=== PATIENT | female | born 1960 | race Two or more races ===

== ENCOUNTER 2017-12-11 09:10 | Emergency (ER) | payer OTHER ==
[2017-12-11 09:22] VITALS: BP 114/60
--- NOTE | 2017-12-11 09:41 | ER Document Report ---
ED Fall - General Chief Complaint: Fall Stated Complaint: WEAKNESS Time Seen by Provider: 12/11/17 09:33 TRAVEL OUTSIDE OF THE [place] IN LAST 30 DAYS: No - HPI Patient complains to provider of: Slip and fall while at work at [employer] Occurred: Just prior to arrival - This 57-year-old female today slipped on paper while at work at [employer] falling onto her left hip and shoulder. She denies any loss of consciousness at that time, denies any chest pain shortness of breath abdominal pain back pain at this time. She denies any loss of continence, she denies any other symptoms. There was no preceding palpitations lightheadedness or other symptoms. Nothing has made the pain any better, movement seems to make it worse. - Related data Allergies/Adverse Reactions: No Known Allergies Allergy (Unverified 12/11/17 09:21) Past Medical History - General Information source: Patient - Social History Smoking Status: Unknown if Ever Smoked Cigarette use (# per day): No Chew tobacco use (# tins/day): No Frequency of alcohol use: None Drug Abuse: None Lives with: Family Family History: None Patient has suicidal ideation: No Patient has homicidal ideation: No - Medical History Medical History: Other Notes: Insulin-dependent diabetic Endocrine Medical History: Reports: Hx Diabetes Mellitus Type 2 Renal/ Medical History: Denies: Hx Peritoneal Dialysis Review of Systems - Review of Systems Musculoskeletal: Back pain, Joint pain, Muscle pain -: Yes All other systems reviewed and negative Physical Exam - Vital signs Vitals: Temp Pulse Resp BP Pulse Ox 97.7 F 61 18 114/60 98 12/11/17 09:21 12/11/17 09:21 12/11/17 09:21 12/11/17 09:21 12/11/17 09:21 - General General appearance: Appears well In distress: Mild - HEENT Head: Normocephalic, Atraumatic Eyes: Normal Extraocular movements intact: Yes Neck: Other - No midline cervical tenderness, baseline paraspinal tenderness, tenderness over the trapezius along the left side - Respiratory Respiratory status: No respiratory distress Chest status: Nontender Breath sounds: Normal Chest palpation: Normal - Cardiovascular Rhythm: Regular - No appreciable murmurs clicks or gallops - Abdominal Inspection: Normal Distension: No distension - Back Notes: No midline tenderness in the thoracic or lumbar spine no appreciable step-offs or deformities - Extremities Arm: Other - Normal range of motion in the right shoulder, 5 out of 5 strength in right upper extremity Diminished range of motion in the left shoulder most painful along the posterior aspect along the superior scapula, tenderness to palpation along the humerus normal range of motion at the elbow wrist and hand Stable chest wall Stable pelvis Diminished range of motion in the left hip, tenderness over the patella left knee Normal range of motion of the right hip as well as the right lower extremity, para 5 strength in the right lower extremity normal sensation in the bilateral lower extremities Course - Re-evaluation Re-evalutation: 12/11/17 15:38 This 57-year-old woman presented after mechanical fall while at work. Given that she is currently complaining of pain along the left leg as well as in the left shoulder with some diminished range of motion will pursue radiographic workup including x-rays of the shoulder clavicle chest pelvis and left knee. Patient's received fentanyl prior to arrival, will re-dose analgesia as necessary. We will obtain basic labs as this patient does have a history of type 1 diabetes that she did take her medications normally today. Patient is overall well appearing at this time does not have any cervical midline tenderness as such as [place] C-spine negative as well as head CT negative will defer imaging of her head and neck at this time. She has no midline tenderness in the thoracic lumbar or cervical spine. Imaging the patient does not demonstrate any obvious fracture, will attempt to place arm in sling for left shoulder sprain, will plan for a trial of ambulation emergency department. Patient was able tolerate ambulation in the emergency department without assistance. Given that she is ambulatory at this time post fall without any concerning neurologic symptoms will plan for this patient be discharged in the care of her family with a short course of narcotic medication for pain as well as Lidoderm for pain. - Vital Signs Vital signs: Temp Pulse Resp BP Pulse Ox 97.7 F 61 18 114/60 98 12/11/17 09:21 12/11/17 09:21 12/11/17 09:21 12/11/17 09:21 12/11/17 09:21 - Laboratory Result Diagrams: 12/11/17 10:53 12/11/17 10:53 Laboratory results interpreted by me: 12/11/17 12/11/17 10:53 10:53 Hgb 11.9 L RDW 14.3 H Creatinine 0.47 L Glucose 193 H Discharge - Discharge Clinical Impression: Fall Qualifiers: Encounter type: initial encounter Qualified Code(s): W19.XXXA - Unspecified fall, initial encounter Shoulder pain Qualifiers: Chronicity: acute Laterality: left Qualified Code(s): M25.512 - Pain in left shoulder Condition: Stable Disposition: HOME, SELF-CARE Instructions: Exercise Program for the Shoulder ([facility]), Contusion ([facility]) Additional Instructions: You were seen today in the emergency department after a fall. You had an evaluation including a physical exam as well as x-rays of your shoulder chest pelvis hip and knee. There were no broken bones identified, you should use the sling only for comfort as needed, try to keep your arm out of the sling as much as possible, do the exercises provided for your shoulder at least twice daily. Use the medication provided only as needed for pain. Call your physician today to schedule appointment for follow-up. Return to emergency department for any worsening numbness or weakness in your arm or leg or if the pain is unbearable. Prescriptions: Hydrocodone/Acetaminophen [[place] 5-325 mg Tablet] 1 tab PO Q6H #10 tablet
--- NOTE | 2017-12-11 10:19 | RADIOLOGY REPORT (SQ) ---
EXAM DESCRIPTION: FEMUR LEFT COMPLETED DATE/TIME: 12/11/2017 10:10 am REASON FOR STUDY: fall, pain COMPARISON: None. NUMBER OF VIEWS: Two views. TECHNIQUE: Two radiographic images acquired of the left femur to include hip and knee in at least on e projection. LIMITATIONS: None. FINDINGS: MINERALIZATION: Normal. BONES: No acute fracture. No worrisome bone lesions. SOFT TISSUES: No obvious swelling or foreign body. OTHER: No other significant finding. IMPRESSION: NEGATIVE STUDY OF THE LEFT FEMUR. NO RADIOGRAPHIC EVIDENCE OF ACUTE INJURY. TECHNICAL DOCUMENTATION: JOB ID: [id number] [employer]- All Rights Reserved Reading location - IP/workstation name: [email or web address]
--- NOTE | 2017-12-11 10:19 | RADIOLOGY REPORT (SQ) ---
EXAM DESCRIPTION: CLAVICLE LEFT COMPLETED DATE/TIME: 12/11/2017 10:10 am REASON FOR STUDY: fall, pain COMPARISON: None. NUMBER OF VIEWS: Two views. TECHNIQUE: Frontal and angled images were acquired of the left clavicle. LIMITATIONS: None. FINDINGS: MINERALIZATION: Normal. BONES: No acute fracture or dislocation. No worrisome bone lesions. SOFT TISSUES: No obvious swelling or foreign body. OTHER: No other significant finding. IMPRESSION: NEGATIVE STUDY OF THE LEFT CLAVICLE. NO RADIOGRAPHIC EVIDENCE OF ACUTE INJURY. TECHNICAL DOCUMENTATION: JOB ID: [id number] [employer]- All Rights Reserved Reading location - IP/workstation name: [email or web address]
--- NOTE | 2017-12-11 10:20 | RADIOLOGY REPORT (SQ) ---
EXAM DESCRIPTION: SHOULDER LEFT 2 OR MORE VIEWS COMPLETED DATE/TIME: 12/11/2017 10:10 am REASON FOR STUDY: fall, pain COMPARISON: None. NUMBER OF VIEWS: Two views. TECHNIQUE: AP and transscapular Y images acquired of the left shoulder. LIMITATIONS: None. FINDINGS: MINERALIZATION: Normal. BONES: No acute fracture or dislocation. No worrisome bone lesions. JOINTS: No dislocation. VISUALIZED LUNGS AND RIBS: No pneumothorax. No rib fracture. SOFT TISSUES: No radiopaque foreign body. OTHER: No other significant finding. IMPRESSION: NEGATIVE STUDY OF THE LEFT SHOULDER. NO RADIOGRAPHIC EVIDENCE OF ACUTE INJURY. TECHNICAL DOCUMENTATION: JOB ID: [id number] [employer]- All Rights Reserved Reading location - IP/workstation name: [email or web address]
--- NOTE | 2017-12-11 10:20 | RADIOLOGY REPORT (SQ) ---
EXAM DESCRIPTION: HIP LEFT AP/LATERAL COMPLETED DATE/TIME: 12/11/2017 10:10 am REASON FOR STUDY: fall, pain COMPARISON: None. NUMBER OF VIEWS: Two views. TECHNIQUE: AP and frog-leg view of the left hip. LIMITATIONS: None. FINDINGS: MINERALIZATION: Normal. LEFT HIP: No fracture or dislocation. No worrisome bone lesions. OPPOSITE HIP: No fracture or dislocation. No worrisome bone lesions. SOFT TISSUES: No findings. OTHER: No other significant finding. IMPRESSION: NEGATIVE STUDY OF THE LEFT HIP. NO RADIOGRAPHIC EVIDENCE OF ACUTE INJURY. TECHNICAL DOCUMENTATION: JOB ID: [id number] [employer]- All Rights Reserved Reading location - IP/workstation name: [email or web address]
--- NOTE | 2017-12-11 10:21 | RADIOLOGY REPORT (SQ) ---
EXAM DESCRIPTION: CHEST 2 VIEWS COMPLETED DATE/TIME: 12/11/2017 10:10 am REASON FOR STUDY: fall, pain COMPARISON: None. EXAM PARAMETERS: NUMBER OF VIEWS: two views TECHNIQUE: Digital Frontal and Lateral radiographic views of the chest acquired. RADIATION DOSE: NA LIMITATIONS: none FINDINGS: LUNGS AND PLEURA: No opacities, masses or pneumothorax. No pleural effusion. MEDIASTINUM AND HILAR STRUCTURES: No masses or contour abnormalities. HEART AND VASCULAR STRUCTURES: Heart normal size. No evidence for failure. BONES: No acute findings. HARDWARE: None in the chest. OTHER: No other significant finding. IMPRESSION: NO ACUTE RADIOGRAPHIC FINDING IN THE CHEST. TECHNICAL DOCUMENTATION: JOB ID: [id number] [employer]- All Rights Reserved Reading location - IP/workstation name: [email or web address]
[2017-12-11 11:15] LABS: ABSOLUTE BASOPHILS # (AUTO) 0.1 10^3/uL (0.0-0.2); ABSOLUTE EOSINOPHILS # (AUTO) 0.3 10^3/uL (0.0-0.6); ABSOLUTE LYMPHOCYTES (AUTO) 1.8 10^3/uL (0.5-4.7); ABSOLUTE MONOCYTES (AUTO) 0.6 10^3/uL (0.1-1.4); ABSOLUTE NEUT (AUTO) 5.6 10^3/uL (1.7-8.2); BASOPHILS % (AUTO) 0.8 % (0-2); HEMATOCRIT 36.6 % (36.0-47.0); HEMOGLOBIN 11.9 g/dL (12.0-15.5); LYMPHOCYTES % (AUTO) 21.8 % (13-45); MEAN CORPUSCULAR HGB CONC 32.6 g/dL (32.0-36.0); MEAN CORPUSCULAR VOLUME 86 fl (80-97); MONOCYTES % (AUTO) 7.7 % (3-13); PLATELET COUNT 282 10^3/uL (150-450); RED BLOOD COUNT 4.26 10^6/uL (3.72-5.28); RED CELL DISTRIBUTION WIDTH 14.3 % (11.5-14.0); SEGMENTED NEUTROPHILS % (AUTO) 66.7 % (42-78); TOTAL CELLS COUNTED % (AUTO) 100 %; WHITE BLOOD COUNT 8.4 10^3/uL (4.0-10.5)
[2017-12-11 11:38] LABS: ANION GAP 9 (5-19); BLOOD UREA NITROGEN 16 mg/dL (7-20); CALCIUM 9.5 mg/dL (8.4-10.2); CARBON DIOXIDE 26 mmol/L (22-30); CHLORIDE 106 mmol/L (98-107); GLUCOSE 193 mg/dL (75-110); POTASSIUM 4.5 mmol/L (3.6-5.0); SODIUM 140.7 mmol/L (137-145)
== END 2017-12-11 12:27 | disposition home or self-care (01) ==
LOC: ER 09:10
DX: S43.402A Unspecified sprain of left shoulder joint, initial encounter (principal); M25.512 Pain in left shoulder; M79.605 Pain in left leg; M54.9 Dorsalgia, unspecified; W01.0XXA Fall on same level from slipping, tripping and stumbling without subsequent striking against object, initial encounter; Y92.511 Restaurant or cafe as the place of occurrence of the external cause; Y99.0 Civilian activity done for income or pay; E10.9 Type 1 diabetes mellitus without complications; Z79.899 Other long term (current) drug therapy
CPT/HCPCS: 36415; 71046; 80048; 85025; 99285